=== PATIENT | male | born 1975 | race Caucasian/White ===

== ENCOUNTER 2020-03-21 17:45 | Emergency (ER) | payer BC ==
[~2020-03-21 17:45] MED LIST: IBUPROFEN800 MG PO; K-DUR TAB 20 M20 MEQ PO; VIBRAMYCIN100 MG PO; ZOFRAN ODT 4 MG4 MG SL
[2020-03-21] MEDS ORDERED: CYCLOBENZAPRINE10 MG PO (21:54)
[2020-03-21] MEDS ORDERED: HYDROCODON-ACE1 EAC2 PO ×2 (21:56→22:15)
== END 2020-03-21 22:40 | disposition home or self-care (01) ==
LOC: ER1 17:45
DX: S49.91XA Unspecified injury of right shoulder and upper arm, initial encounter (principal); I10 Essential (primary) hypertension; Z88.0 Allergy status to penicillin; X50.0XXA Overexertion from strenuous movement or load, initial encounter
CPT/HCPCS: 73030; 73060; 99283

== ENCOUNTER → 2020-03-22 | Outpatient (CLI) | payer BC ==
[~2020-03-22] MED LIST changes: +CYCLOBENZAPRINE10 MG PO; +HYDROCODON-ACE1 EAC2 PO
== END ==
LOC: EMI 14:30
DX: S46.211A Strain of muscle, fascia and tendon of other parts of biceps, right arm, initial encounter (principal)
CPT/HCPCS: 73221